=== PATIENT | male | born 1985 | race Caucasian/White ===

== ENCOUNTER 2018-03-22 12:19 | Emergency (ER) | payer SELFPAY ==
[~2018-03-22] VITALS: Ht 172.7 cm; Wt 68.0 kg
[2018-03-22] MEDS ORDERED: MORPHINE SULFATE INJ 4 MG/ML DISP.SYRIN ONE (12:44)
[2018-03-22] MEDS ORDERED: KETOROLAC TROMETHAMINE INJ 30 MG/ML VIAL ONE (12:44)
[2018-03-22] MEDS ORDERED: ONDANSETRON HCL/PF 4 MG/2 ML VIAL ONE (12:44)
[2018-03-22 12:52] LABS: BASOPHILS # (AUTO) 0.1 /CMM (0.0-0.2); BASOPHILS % (AUTO) 0.5 % (0.0-2.0); EOSINOPHILS % (AUTO) 0.3 % (0.0-6.0); HEMATOCRIT 48 % (39-51); HEMOGLOBIN 15.9 g/dL (13.5-17.5); LYMPHOCYTES # (AUTO) 2.8 /CMM (0.8-4.8); MEAN CORPUSCULAR HGB CONC 33 g/dl (31.0-36.0); MEAN CORPUSCULAR VOLUME 96 fL (80-96); MONOCYTES # (AUTO) 0.9 /CMM (0.1-1.30); MONOCYTES % (AUTO) 4.4 % (2.0-12.0); NEUTROPHILS % (AUTO) 80.8 % (43.0-81.0); PLATELET COUNT (AUTO) 287 /CMM (150-450); RDW COEFFICIENT OF VARIATION 12.5 (11.5-15.0); RED BLOOD CELL COUNT(AUTO) 4.98 MIL/uL (4.5-6.0); WHITE BLOOD COUNT (AUTO) 19.8 K/uL (4.3-11.0)
[2018-03-22 12:58] LABS: CALCIUM, SERUM 10.3 mg/dL (8.5-10.1); CREATININE 1.3 mg/dL (0.6-1.3); POTASSIUM 3.5 mmol/L (3.5-5.1)
[2018-03-22] MEDS ORDERED: ONDANSETRON HCL/PF 4 MG/2 ML VIAL IVP ONE (13:00)
[2018-03-22] MEDS ORDERED: HYDROMORPHONE 1 MG/1 ML DISP.SYRIN IV ONE (13:00)
[2018-03-22] MEDS ORDERED: IV NS 0.9% 1,000 ML BAG IV ONE ×2 (13:00→15:00)
[2018-03-22] MEDS ORDERED: MORPHINE SULFATE INJ 2 MG/ML DISP.SYRIN IV ONE (13:00)
[2018-03-22] MEDS ORDERED: HYDROMORPHONE INJ 2 MG/ML DISP.SYRIN ONE (13:09)
--- NOTE | 2018-03-22 13:11 | NUR ---
REMINDED PATIENT ABOUT THE URINE COLLECTION
--- NOTE | 2018-03-22 13:11 | NUR ---
PATIENT TO ED DT RIGHT FLANK PAIN x 2-3 DAYS, HEMATURIA, DYSURIA, PAIN RADIATES TO BACK. PATIENT IS AWAKE AND ALERT. APPEARS IN MILD DISTRESS DT PAIN. PATIENT IS AFEBRILE. VSS
[2018-03-22 15:36] LABS: APPEARANCE,URINE Cloudy (CLEAR); BILIRUBIN,URINE SMALL (NEGATIVE); BLOOD, URINE Large Ery/uL (NEGATIVE); COLOR,URINE Brown (YELLOW); KETONES,URINE 40 (NEGATIVE); LEUKOCYTE ESTERASE ,URINE Negative (NEGATIVE); NITRITE, URINE Negative (NEGATIVE); PROTEIN,URINE 100 mg/dl (NEGATIVE); UGLUCOSE Negative (NEGATIVE); UROBILINOGEN,URINE 0.2 EU/dL (0.2)
[2018-03-22 15:42] LABS: BACTERIA,URINE None seen /HPF (None Seen); RBC,URINE TOO NUMEROUS TO COUN /HPF (0-2); SQUAMOUS EPITHELIAL CELL,UR Rare /HPF (None Seen); WBC,URINE 0-3 /HPF (0-3)
[2018-03-22 15:43] LABS: CALCIUM OXALATE CRYSTALS,UR Moderate /HPF (None Seen); MUCUS,URINE Few /LPF (None Seen)
[2018-03-22 16:11] VITALS: BP 132/78
== END 2018-03-22 16:15 | disposition home or self-care (01) ==
LOC: ER 12:23
DX: N13.2 Hydronephrosis with renal and ureteral calculous obstruction (principal); D72.829 Elevated white blood cell count, unspecified
CPT/HCPCS: 36415; 80048-TC; 81000-TC; 82550-TC; 85025-TC; A4606; J1170; J1885; J2270; J2405; J7030; Z7610

== ENCOUNTER 2018-10-30 03:13 | Emergency (ER) | payer SELFPAY ==
[~2018-10-30] VITALS: Ht 185.4 cm; Wt 72.6 kg
--- NOTE | 2018-10-30 03:25 | NUR ---
PT BIB BROTHER FROM HOME C/C R FLANK PAIN & UNABLE TO URINATE FOR COUPLE HOURS HX OF KIDNEY STONES. +N/V-D. AFEBRILE. PT AOX4 AND RESTLESS. PT ON MONITOR IN BED 4. WILL CONTINUE TO MONITOR.
[2018-10-30] MEDS ORDERED: IV NS 0.9% 1,000 ML BAG IV ONE (03:30)
[2018-10-30] MEDS ORDERED: HYDROMORPHONE INJ 2 MG/ML DISP.SYRIN IV ONE (03:30)
[2018-10-30] MEDS ORDERED: ONDANSETRON HCL/PF 4 MG/2 ML VIAL IVP ONE (03:30)
[2018-10-30] MEDS ORDERED: KETOROLAC TROMETHAMINE INJ 30 MG/ML VIAL IV ONE (03:30)
[2018-10-30] MEDS ORDERED: TAMSULOSIN 0.4 MG CAP.SR.24H PO ONE (03:30)
--- NOTE | 2018-10-30 03:30 | NUR ---
BROTHERS PHONE NUMBER [phone]
[2018-10-30] MEDS ORDERED: KETOROLAC TROMETHAMINE INJ 30 MG/ML VIAL ONE (03:33)
[2018-10-30] MEDS ORDERED: ONDANSETRON HCL/PF 4 MG/2 ML VIAL ONE (03:33)
[2018-10-30] MEDS ORDERED: HYDROMORPHONE INJ 0.5 MG/0.5 ML SYRINGE ONE (03:34)
--- NOTE | 2018-10-30 03:35 | NUR ---
BLOOD DRAWN AND GIVEN TO LAB
[2018-10-30 03:50] LABS: BASOPHILS # (AUTO) 0.1 /CMM (0.0-0.2); BASOPHILS % (AUTO) 0.3 % (0.0-2.0); EOSINOPHILS % (AUTO) 0.7 % (0.0-6.0); HEMATOCRIT 45 % (39-51); LYMPHOCYTES # (AUTO) 2.1 /CMM (0.8-4.8); LYMPHOCYTES % (AUTO) 13.5 % (20.0-44.0); MEAN CORPUSCULAR HGB CONC 34 g/dl (31.0-36.0); MEAN CORPUSCULAR VOLUME 94 fL (80-96); MONOCYTES # (AUTO) 0.8 /CMM (0.1-1.30); MONOCYTES % (AUTO) 5.3 % (2.0-12.0); NEUTROPHILS # (AUTO) 12.7 /CMM (1.8-8.9); NEUTROPHILS % (AUTO) 80.2 % (43.0-81.0); PLATELET COUNT (AUTO) 396 /CMM (150-450); RED BLOOD CELL COUNT(AUTO) 4.79 MIL/uL (4.5-6.0); WHITE BLOOD COUNT (AUTO) 15.9 K/uL (4.3-11.0)
[2018-10-30 03:54] VITALS: BP 118/55
[2018-10-30 04:01] LABS: CALCIUM, SERUM 9.7 mg/dL (8.5-10.1); CREATININE 1.6 mg/dL (0.6-1.3); POTASSIUM 3.8 mmol/L (3.5-5.1)
[2018-10-30 04:07] LABS: ALBUMIN 4.7 g/dL (3.4-5.0); BILIRUBIN,DIRECT 0.1 mg/dL (0.0-0.2); BILIRUBIN,TOTAL 0.6 mg/dL (0.2-1.0); TOTAL PROTEIN, SERUM 7.9 g/dL (6.4-8.2)
[2018-10-30] MEDS ORDERED: TAMSULOSIN 0.4 MG CAP.SR.24H ONE (04:26)
--- NOTE | 2018-10-30 04:58 | NUR ---
IV removed. Catheter intact and site benign. Pressure and 4x4 applied to site. No bleeding noted.Patient discharged to home in stable condition. Written and verbal after care instructions given. Patient verbalizes understanding of instruction. PT AMBULATORY WITH STEADY GAIT.
[2018-11-05] MEDS ORDERED: LEVO500T75 PO (13:15)
== END 2018-10-30 05:00 | disposition home or self-care (01) ==
LOC: ER 03:16
DX: N20.0 Calculus of kidney (principal); J45.909 Unspecified asthma, uncomplicated; K21.9 Gastro-esophageal reflux disease without esophagitis; Z90.89 Acquired absence of other organs; Z87.19 Personal history of other diseases of the digestive system
CPT/HCPCS: 36415; 76770; 80048; 80076; 83690; 85025; 96374; 96375; 99284; A4606; J1885; J2405; J7030; Z7610

== ENCOUNTER 2018-11-03 04:54 | Inpatient (IN) | payer MEDICAID ==
[~2018-11-03] VITALS: Ht 180.3 cm; Wt 68.9 kg
--- NOTE | 2018-11-03 05:15 | NUR ---
Pt came to emergency complaining of R Flank pain that started at 8:00pm last night. Pt is moaning, and yelling in pain, restless on the bed. Pt states 10/10 pain. Respirations are even and unlabored. Pt put on the monitor and pulse ox. Pending eval from ER .
--- NOTE | 2018-11-03 05:20 | NUR ---
Urine sample obtained and sent to lab.
--- NOTE | 2018-11-03 05:22 | NUR ---
Graphic Art Designer at [facility] for Lab draw. Labs sent.
[2018-11-03] MEDS ORDERED: HYDROMORPHONE INJ 2 MG/ML DISP.SYRIN IV ONE (05:30)
[2018-11-03] MEDS ORDERED: IV NS 0.9% 1,000 ML BAG IV ONE (05:30)
[2018-11-03] MEDS ORDERED: ONDANSETRON HCL/PF 4 MG/2 ML VIAL IVP ONE (05:30)
[2018-11-03] MEDS ORDERED: HYDROMORPHONE 1 MG/1 ML DISP.SYRIN ONE (05:31)
[2018-11-03] MEDS ORDERED: ONDANSETRON HCL/PF 4 MG/2 ML VIAL ONE (05:31)
[2018-11-03 05:33] LABS: BASOPHILS % (AUTO) 0.3 % (0.0-2.0); HEMATOCRIT 36 % (39-51); HEMOGLOBIN 12.3 g/dL (13.5-17.5); LYMPHOCYTES # (AUTO) 0.8 /CMM (0.8-4.8); LYMPHOCYTES % (AUTO) 5.1 % (20.0-44.0); MEAN CORPUSCULAR HGB CONC 34 g/dl (31.0-36.0); MEAN CORPUSCULAR VOLUME 93 fL (80-96); MONOCYTES # (AUTO) 0.7 /CMM (0.1-1.30); MONOCYTES % (AUTO) 4.2 % (2.0-12.0); NEUTROPHILS # (AUTO) 14.2 /CMM (1.8-8.9); NEUTROPHILS % (AUTO) 90.4 % (43.0-81.0); PLATELET COUNT (AUTO) 297 /CMM (150-450); RED BLOOD CELL COUNT(AUTO) 3.84 MIL/uL (4.5-6.0); WHITE BLOOD COUNT (AUTO) 15.7 K/uL (4.3-11.0)
[2018-11-03 05:39] LABS: APPEARANCE,URINE CLEAR (CLEAR); BILIRUBIN,URINE NEGATIVE (NEGATIVE); BLOOD, URINE 3+ Ery/uL (NEGATIVE); COLOR,URINE YELLOW (YELLOW); KETONES,URINE 2+ (NEGATIVE); LEUKOCYTE ESTERASE ,URINE NEGATIVE (NEGATIVE); NITRITE, URINE NEGATIVE (NEGATIVE); PH,URINE 6.5 (5.0-8.0); PROTEIN,URINE NEGATIVE (NEGATIVE); UGLUCOSE NEGATIVE (NEGATIVE); UROBILINOGEN,URINE 0.2 EU/dL (0.2)
--- NOTE | 2018-11-03 05:40 | NUR ---
Pt taken to CT.
[2018-11-03 05:45] LABS: CALCIUM, SERUM 9.5 mg/dL (8.5-10.1); CREATININE 1.2 mg/dL (0.6-1.3)
[2018-11-03 05:49] LABS: BACTERIA,URINE None seen /HPF (None Seen); MUCUS,URINE Few /LPF (None Seen); RBC,URINE 51-80 /HPF (0-2); SQUAMOUS EPITHELIAL CELL,UR Few /HPF (None Seen)
[2018-11-03 05:52] LABS: BILIRUBIN,DIRECT 0.1 mg/dL (0.0-0.2); BILIRUBIN,TOTAL 0.4 mg/dL (0.2-1.0)
--- NOTE | 2018-11-03 05:55 | NUR ---
Pt returned from CT and put on the Monitor and pulse ox. NAD Noted.
--- NOTE | 2018-11-03 06:00 | NUR ---
Pt complaining of pain, 07/18. ER AWARE.
--- NOTE | 2018-11-03 06:15 | NUR ---
Patient is resting comfortably in bed with eyes closed. Easily aroused. VSS
[2018-11-03] MEDS ORDERED: KETOROLAC TROMETHAMINE INJ 30 MG/ML VIAL ONE (06:23)
[2018-11-03] MEDS ORDERED: KETOROLAC TROMETHAMINE INJ 30 MG/ML VIAL IV ONE (06:30)
--- NOTE | 2018-11-03 06:58 | NUR ---
Pt complaining of R flank pain, 07/18. ER MD Notified. Will carry out orders.
--- NOTE | 2018-11-03 06:58 | NUR ---
Dr. Blount on the phone with Urology Dr. Leblanc.
[2018-11-03] MEDS ORDERED: HYDROMORPHONE INJ 0.5 MG/0.5 ML SYRINGE IV ONE (07:00)
[2018-11-03] MEDS ORDERED: HYDROMORPHONE INJ 0.5 MG/0.5 ML SYRINGE ONE (07:00)
--- NOTE | 2018-11-03 07:08 | NUR ---
DAISY called spoke with Erick, was told there was an update to so he can not reach the computer system at this moment, and will call back once it has updated. Erick is aware that we need a higher level of care for urology.
--- NOTE | 2018-11-03 07:13 | NUR ---
Report given to Nayan BARNETT for LINDY.
--- NOTE | 2018-11-03 07:35 | NUR ---
Spoke with Erick at [facility], faxed over facesheet and CT abdomen/pelvis.
[2018-11-03] MEDS ORDERED: CEFTRIAXONE 1 G in IV D5W 50 ML IV ONE (08:00)
--- NOTE | 2018-11-03 08:07 | NUR ---
CALL BACK FROM [facility], AFTER DR UNGER SPOKE WITH [facility]ISY UROLOGIST, DETERMINED THAT THERE IS NO ACUTE CONDITION AT THIS TIME AND THAT THE UROLOGIST ON STAFF IS ABLE TO PLACE A STENT. IF FOR ANY REASON OUR UROLOGIST IS NOT ABLE TO TACE CARE OF THE CONDITION,HE WANTS US TO CALL HIM AT [phone] DIRECTLY TO TRY [facility].DR UNGER INFORMED
--- NOTE | 2018-11-03 08:23 | NUR ---
ACCEPTED BY DR HORN FOR CONSULT,PANEL ON-CALL PAGED,TRUPTI GRANGER CALLED FOR MS BED
[2018-11-03] MEDS ORDERED: CEFTRIAXONE 1GM BAG (ER ONLY) 50 ML IV ONE (08:26)
[2018-11-03] MEDS ORDERED: LANS30CA54 GT (08:41)
--- NOTE | 2018-11-03 08:56 | NUR ---
called [facility] / [facility] and spoke to anna BARNETT and report given and for becky.
[2018-11-03] MEDS ORDERED: ZOLPIDEM TARTRATE 5 MG TABLET PO PRN (09:30)
[2018-11-03] MEDS ORDERED: HYDROMORPHONE INJ 0.5 MG/0.5 ML SYRINGE IV PRN (09:30)
[2018-11-03] MEDS ORDERED: MORPHINE SULFATE INJ 2 MG/ML DISP.SYRIN IV PRN (09:30)
[2018-11-03] MEDS ORDERED: MAG HYDROX/AL HYDROX/SIMETH 30 ML UDC PO PRN (09:30)
[2018-11-03] MEDS ORDERED: ACETAMINOPHEN 325 MG TABLET PO PRN (09:30)
[2018-11-03] MEDS ORDERED: MAGNESIUM HYDROXIDE 30 ML UDC PO PRN (09:30)
[2018-11-03] MEDS ORDERED: HYDROCODONE/APAP 5/325MG 1 EACH TABLET PO PRN (09:30)
[2018-11-03] MEDS ORDERED: Z GUARD REMEDY 2 OZ OINT TP PRN (09:30)
--- NOTE | 2018-11-03 10:38 | NUR ---
transferred patient via wheelchair in no apparent distress noted.
[2018-11-03 10:40] VITALS: BP 134/71
--- NOTE | 2018-11-03 10:45 | NUR ---
CIRCULATION SALES REPRESENTATIVE PATIENT A/OX4, C/O MILD PAIN BUT TOLERABLE AT THIS TIME, SKIN ASSESSMENT COMPLETED, SKIN DRY AND INTACT, PATIENT AMBULATES WITH STEADY GAIT. RAC G20 PATENT AND FLUSHES WELL, KEPT PATIENT COMFORTABLE, KEPT NPO AT THIS TIME. NEEDS ATTENDED AND MET, CALL LIGHT WITHIN REACH, WILL CONTINUE TO MONITOR.
[2018-11-03 11:00] VITALS: BP 134/71
[2018-11-03] MEDS: ONDANSETRON HCL/PF 4 MG/2 ML VIAL IVP PRN ×2 (11:01→21:41)
[2018-11-03] MEDS: IV D5/0.45 NACL 1,000 ML IV PRN ×2 (11:11→21:26)
[2018-11-03] MEDS: LEVOFLOXACIN 500 MG /D5W 100ML 500 MG in PREMIX 1 EA IV SCH (13:11)
[2018-11-03] MEDS: HYDROMORPHONE INJ 0.5 MG/0.5 ML SYRINGE IV PRN ×3 (13:20→21:45)
--- NOTE | 2018-11-03 15:00 | NUR ---
RN NOTES PATIENT SEEN BY DR. HORN AND EXPLAINED PROCEDURE SCHEDULED FOR TOMORROW. PATIENT AGREED.
[2018-11-03 16:00] VITALS: BP 123/89
--- NOTE | 2018-11-03 18:51 | NUR ---
RN NOTES PATIENT IN NAD, ON IVF AND TOLERATING WELL, DENIES PAIN OR DISCOMFORT AT THIS TIME, PATIENT UNABLE TO TOLERATE ANY FOOD OR LIQUID AT THIS TIME DUE TO NAUSEA. NEEDS ATTENDED, CALL LIGHT WITHIN REACH, WILL ENDORSE TO HAND INSERTER OPERATOR FOR LINDY.
[2018-11-03 20:00] VITALS: BP 124/80
[2018-11-03] MEDS: KETOROLAC TROMETHAMINE INJ 30 MG/ML VIAL IV PRN (20:14)
--- NOTE | 2018-11-03 20:17 | NUR ---
RN NOTES COMPLAINED OF ABDOMINAL PAIN- TORADOL 15 MG IV GIVEN ORDERED, V/S STABLE
--- NOTE | 2018-11-03 21:48 | NUR ---
RN NOTES COMPLAINED OF FEELING NAUSEOUS AND ABDOMINAL PAIN- ZOFRAN 4 MG IV GIVEN ORDERED FOR NAUSEA AND DILAUDID 0.5 MG IV GIVEN ORDERED FOR PAIN, V/S STABLE
--- NOTE | 2018-11-03 22:23 | NUR ---
RN NOTES PT. IS COMPLAINING OF SEVERE PAIN ON HIS ABDOMEN RADIATING ON HIS BACK, PT STATED THAT DILAUDID 0.5MG IV WAS NOT WORKING.. SPOKE TO YOLANDE JEREZ AND INFORMED REGARDING PT. COMPLAINED, YOLANDE JEREZ ORDERED TO GIVEN DILAUDID 1MG IV NOW AND CHANGE THE DILAUDID TO 1MG IV Q 2HRS PRN ORDER NOTED AND CARRIED OUT
[2018-11-03] MEDS ORDERED: HYDROMORPHONE 1 MG/1 ML DISP.SYRIN IV ONE (22:30)
[2018-11-04] MEDS: HYDROMORPHONE 1 MG/1 ML DISP.SYRIN IV PRN ×4 (02:04→14:54)
--- NOTE | 2018-11-04 02:06 | NUR ---
RN NOTES COMPLAINED OF ABDOMINAL PAIN- DILAUDID 1MG IV GIVEN ORDERED, V/S STABLE
[2018-11-04] MEDS: ONDANSETRON HCL/PF 4 MG/2 ML VIAL IVP PRN ×3 (03:37→14:08)
--- NOTE | 2018-11-04 05:10 | NUR ---
RN NOTES COMPLAINED OF FEELING NAUSEOUS AND ABDOMINAL PAIN- ZOFRAN 4 MG IV GIVEN FOR NAUSEA AND DILAUDID 1MG IV GIVEN FOR ABDOMINAL PAIN , V/S STABLE
[2018-11-04] MEDS: IV D5/0.45 NACL 1,000 ML IV PRN (05:53)
--- NOTE | 2018-11-04 06:32 | NUR ---
RN NOTES SLEEPING BUT AROUSABLE, NO PAIN NOTED, NO SOB, MORNING CARE RENDERED, CALL LIGHT WITHIN REACH, DARYAILSUPX2, PT. NEEDS ATTENDED
--- NOTE | 2018-11-04 07:25 | NUR ---
RN NOTES PATIENT SLEEPING, EASILY AWAKEN, NAD, DENIES PAIN AT THIS TIME. KEPT COMFORTABLE, NEEDS ATTENDED, CALL LIGHT WITHIN REACH, WILL CONTINUE TO MONITOR.
[2018-11-04 07:58] LABS: BASOPHILS % (AUTO) 0.5 % (0.0-2.0); EOSINOPHILS % (AUTO) 1.3 % (0.0-6.0); HEMATOCRIT 31 % (39-51); HEMOGLOBIN 10.3 g/dL (13.5-17.5); LYMPHOCYTES # (AUTO) 1.8 /CMM (0.8-4.8); LYMPHOCYTES % (AUTO) 30.2 % (20.0-44.0); MEAN CORPUSCULAR HGB CONC 33 g/dl (31.0-36.0); MEAN CORPUSCULAR VOLUME 97 fL (80-96); MONOCYTES # (AUTO) 0.6 /CMM (0.1-1.30); MONOCYTES % (AUTO) 10.5 % (2.0-12.0); NEUTROPHILS # (AUTO) 3.5 /CMM (1.8-8.9); NEUTROPHILS % (AUTO) 57.5 % (43.0-81.0); PLATELET COUNT (AUTO) 230 /CMM (150-450); RED BLOOD CELL COUNT(AUTO) 3.22 MIL/uL (4.5-6.0)
[2018-11-04 08:15] LABS: ALBUMIN 2.5 g/dL (3.4-5.0); BILIRUBIN,TOTAL 0.2 mg/dL (0.2-1.0); CREATININE 0.8 mg/dL (0.6-1.3); MAGNESIUM 1.3 mg/dL (1.8-2.4); PHOSPHORUS 1.7 mg/dL (2.5-4.9); TOTAL PROTEIN, SERUM 4.7 g/dL (6.4-8.2)
[2018-11-04] MEDS: PANTOPRAZOLE 40 MG VIAL IV SCH (08:39)
[2018-11-04] MEDS: CEFTRIAXONE 1 G in IV D5W 50 ML IV SCH (08:40)
[2018-11-04 08:42] LABS: POTASSIUM 2.6 mmol/L (3.5-5.1)
--- NOTE | 2018-11-04 08:45 | NUR ---
RN NOTES CALLED MICHELLE PLANT CHANGER FOR CRITICAL RESULT OF POTASSIUM OF 2.6 AND GLUCOSE LEVEL OF 848, RECEIVED ORDERS FOR 1L NS BOLUS, 10 UNITS OF REGULAR INSULIN X1 AND 40 MEQ OF POTASSIUM IV FOR REPLACEMENT. ORDERS NOTED AND CARRIED OUT. SURGERY TEAM MADE AWARE. NURSING SIZING MACHINE AND DRIER OPERATOR MADE AWARE.
[2018-11-04] MEDS ORDERED: INSULIN REGULAR, HUMAN 100 UNIT/ML 10 ML VIAL SQ STA (08:47)
[2018-11-04] MEDS: POTASSIUM CL. PREMIX PERIPHER. 50 ML IV SCH ×4 (08:58→12:01)
[2018-11-04] MEDS ORDERED: IV NS 0.9% 1,000 ML IV ONE (09:00)
[2018-11-04] MEDS ORDERED: DEXTROSE 50%-WATER 50 ML DISP.SYRIN IV PRN (10:00)
[2018-11-04] MEDS ORDERED: INSULIN REGULAR, HUMAN 100 UNIT/ML 3 ML VIAL SQ PRN (10:00)
[2018-11-04] MEDS: Magnesium 1GM/D5W 100ML PREMIX 100 ML IV SCH ×4 (10:11→13:17)
[2018-11-04] MEDS ORDERED: IV NS 0.9% 1,000 ML IV PRN (10:30)
[2018-11-04] MEDS ORDERED: K PHOS NEUTRAL 250 MG TABLET PO ONE (11:30)
--- NOTE | 2018-11-04 12:11 | NUR ---
RNNTOES BLOOD SUGAR 63, MICHELLE MADE AWARE, RECEIVED ORDER TO GIVE D50, KEEP PATIENT ON NPO FOR SURGERY. PATIENT VERBALIZED FEELING "A LITTLE LIGHT HEADED" BUT OTHERWISE RESPONSIVE. WILL ADMINISTER D50.
[2018-11-04] MEDS: BLOOD SUGAR DIAGNOSTIC 1 EACH STRIP IN SCH ×3 (12:18→23:52)
[2018-11-04] MEDS: KETOROLAC TROMETHAMINE INJ 30 MG/ML VIAL IV PRN (12:37)
[2018-11-04] MEDS: LEVOFLOXACIN 500 MG /D5W 100ML 500 MG in PREMIX 1 EA IV SCH (13:17)
[2018-11-04 16:00] VITALS: BP 128/70
[2018-11-04] MEDS ORDERED: POTASSIUM CL. PREMIX PERIPHER. 50 ML IV SCH (16:00)
[2018-11-04] MEDS: LACTOBACILLUS RHAMNOSUS GG 1 EACH CAP.SPRINK PO SCH (17:00)
[2018-11-04] MEDS ORDERED: ANESTHESIA TRAY IN PYXIS 1 EA TRAY MC ONE (17:35)
--- NOTE | 2018-11-04 17:54 | NUR ---
RN NOTES PATIENT TRANSFERRED TO OR FOR SURGERY PROCEDURE, CYSTOSCOPY. REPORT GIVEN TO OR NURSES.
[2018-11-04] MEDS ORDERED: FENTANYL PF 100MCG/2ML AMPUL ONE ×2 (18:01→19:02)
--- NOTE | 2018-11-04 19:40 | NUR ---
RN NOTES PT. CAME BACK FROM OR, S/P CYSTOSCOPY, COMPLAINING OF BURNING PAIN ON HIS PRIVATE PART , V/S STABLE... PT. COMPLAINED THAT HIS URINE IS RED IN COLOR, OPERATING ROOM NURSE EXPLAINED TO HIM THAT THE DOCTOR INSERTED AN INSTRUMENT ON HIS PRIVATE PART AND IT'S NORMAL, V/S STABLE, CALL LIGHT WITHIN REACH, SIDERAILSUPX2, CONTINUE TO MONITOR
[2018-11-04 19:45] VITALS: BP 137/81
--- NOTE | 2018-11-04 19:45 | NUR ---
RN NOTES PAT (OR NURSE ) CAME BACK AND GOT A TELEPHONE ORDER FROM DR. HORN TO GIVE PATIENT PYRIDIUM 200MG PO ONCE, ORDER NOTED AND CARRIED OUT
[2018-11-04 19:52] VITALS: BP 135/68
[2018-11-04] MEDS ORDERED: PHENAZOPYRIDINE HCL 200 MG TABLET PO ONE (20:00)
[2018-11-04 20:15] VITALS: BP 147/84
[2018-11-04] MEDS ORDERED: PHENAZOPYRIDINE HCL 200 MG TABLET ONE (20:18)
[2018-11-04 20:30] VITALS: BP 133/76
[2018-11-04 20:45] VITALS: BP_SYST 130; BP_SYST 135; BP_DIAS 76; BP_DIAS 87
--- NOTE | 2018-11-04 22:00 | NUR ---
RN NOTES AFTER GIVING PYRIDIUM 200MG PO, PT FEELS BETTER
[2018-11-05] MEDS: BLOOD SUGAR DIAGNOSTIC 1 EACH STRIP IN SCH ×2 (06:12→11:47)
--- NOTE | 2018-11-05 06:35 | NUR ---
RN NOTES AWAKE, DENIES PAIN, NO SOB, MORNING CARE RENDERED, PT. STATED THAT HE FEELS BETTER, CALL LIGHT WITHIN REACH, SIDERAILSUPX2, PT. NEEDS ATTENDED
[2018-11-05 06:38] LABS: CALCIUM, SERUM 8.7 mg/dL (8.5-10.1); PHOSPHORUS 3.9 mg/dL (2.5-4.9); POTASSIUM 4.2 mmol/L (3.5-5.1)
[2018-11-05 06:39] LABS: BASOPHILS % (AUTO) 0.1 % (0.0-2.0); HEMATOCRIT 36 % (39-51); HEMOGLOBIN 12.2 g/dL (13.5-17.5); LYMPHOCYTES # (AUTO) 1.3 /CMM (0.8-4.8); LYMPHOCYTES % (AUTO) 17.7 % (20.0-44.0); MEAN CORPUSCULAR HGB CONC 34 g/dl (31.0-36.0); MEAN CORPUSCULAR VOLUME 95 fL (80-96); MONOCYTES # (AUTO) 0.4 /CMM (0.1-1.30); MONOCYTES % (AUTO) 5.4 % (2.0-12.0); NEUTROPHILS # (AUTO) 5.6 /CMM (1.8-8.9); NEUTROPHILS % (AUTO) 76.8 % (43.0-81.0); PLATELET COUNT (AUTO) 278 /CMM (150-450); RED BLOOD CELL COUNT(AUTO) 3.82 MIL/uL (4.5-6.0); WHITE BLOOD COUNT (AUTO) 7.3 K/uL (4.3-11.0)
--- NOTE | 2018-11-05 07:20 | NUR ---
MSRN. PT RECEIVED A&0X4, TOLERATING ROOM AIR WITHOUT DISTRESS, PT DENIES PAIN. PT WITH IVCX2, L HAND TENDER TO FLUSH AND D/C'D, NAD A T SITE, L AC INTACT AND SALINE FLUSH PATENT. PT WITH RED HEMATURIA IN URINAL. PT BED IN LOWEST LOCKED POSITION WITH HANDRIALSX2 AND CALL CARSON WITHIN REACH. PT BRIEFED ON POC AND IS WITHOUT CONCERN OR COMPLAINT, WILL CONTINUE POC.
[2018-11-05 08:00] VITALS: BP 129/82
[2018-11-05] MEDS: CEFTRIAXONE 1 G in IV D5W 50 ML IV SCH (08:52)
[2018-11-05] MEDS: LACTOBACILLUS RHAMNOSUS GG 1 EACH CAP.SPRINK PO SCH (08:52)
[2018-11-05] MEDS: PANTOPRAZOLE 40 MG VIAL IV SCH (08:52)
[2018-11-05] MEDS: LEVOFLOXACIN 500 MG /D5W 100ML 500 MG in PREMIX 1 EA IV SCH (12:52)
[2018-11-05] MEDS ORDERED: LEVO500T75 PO (13:15)
--- NOTE | 2018-11-05 15:36 | NUR ---
MSRN. PT REMAINS A&0X4, TOLERATING ROOM AIR WITHOUT DISTRESS, PT DENIES PAIN. PT IVCX2 REMOVED AND NAD. PT BRIEFED ON SOH D/C PACKET, SCRIPTS, S/S OF ADVERSE EVENT AND IS VERBALIZING RESOURCES, UNDERSTANDING AND INTENT TO FOLLOW POC. PT WITH ALL BELONGINGS AND DOCUMENT SIGNED. PT LEFT AMBULATORY WITH FAMILY ESCORT. PT AND FAMILY WITHOUT CONCERN OR COMPLAINT AND GRATEFUL FOR CARE.
== END 2018-11-05 14:00 | disposition home or self-care (01) | DRG 465 ==
LOC: ER 04:55 → MEDSG2 08:51
PROVIDERS: ADMIT Nurse Practitioner Acute Care; ATTEND Nurse Practitioner Acute Care
DX: N13.2 Hydronephrosis with renal and ureteral calculous obstruction (principal); D64.9 Anemia, unspecified; D72.829 Elevated white blood cell count, unspecified; K21.9 Gastro-esophageal reflux disease without esophagitis; R73.9 Hyperglycemia, unspecified; E87.6 Hypokalemia
CPT/HCPCS: 36415; 74018; 80048-TC; 80053-TC; 80061-TC; 80076-TC; 81000-TC; 82962-TC; 83690-TC; 83735-TC; 84100-TC; 84132-TC; 85025-TC; 87081-TC; 87086-TC; A4216; A4217; C9113; G0378; J0696; J1100; J1170; J1815; J1885; J1956; J2405; J2704; J3010; J3475; J3480; J3490; J7030; J7060